=== PATIENT | female | born 1970 | race Caucasian/White ===

== ENCOUNTER → 2019-02-07 | Outpatient (CLI) | payer BC ==
[2019-02-09 15:06] LABS: HPV 16 Negative (Negative); HPV 18 Negative (Negative); HPV OTHER HR TYPES Negative (Negative)
== END | disposition home or self-care (01) ==
LOC: LAB 18:40 → LAB SHORT 18:40
PROVIDERS: Obstetrics & Gynecology
DX: Z01.419 Encounter for gynecological examination (general) (routine) without abnormal findings (principal)
CPT/HCPCS: 87624; G0123

== ENCOUNTER 2019-05-29 06:05 | Day surgery (SDC) | payer BC ==
[~2019-05-29] VITALS: Ht 170.2 cm; Wt 96.1 kg
[~2019-05-29 06:05] MED LIST: ATOM25 PO; ESCI20 PO; ESTR2 PO; ESTRADIOL; LORA1 PO; Testopel75 MG; ZOLP12.5 PO; Zoloft50 MG PO
== END 2019-05-29 09:09 | disposition home or self-care (01) ==
LOC: ORSCSDS 06:05
PROVIDERS: Orthopaedic Surgery
PROC: 01N50ZZ Release Median Nerve, Open Approach (ICD-10-PCS; principal; 2019-05-29 08:00)
DX: G56.01 Carpal tunnel syndrome, right upper limb (principal); Z79.899 Other long term (current) drug therapy; E66.9 Obesity, unspecified; Z68.33 Body mass index [BMI] 33.0-33.9, adult
CPT/HCPCS: J2250; J2704; J3010

== ENCOUNTER → 2019-06-11 | Outpatient (CLI) | payer BC | END | disposition home or self-care (01) | LOC: LAB SHORT 08:50 → LAB 08:50 | DX: G56.01 Carpal tunnel syndrome, right upper limb (principal) | CPT/HCPCS: 87070; 87075; 87077; 87186; 87205 ==

== ENCOUNTER 2022-02-26 13:49 | Inpatient (IN) | payer BC ==
[~2022-02-26] VITALS: Ht 170.2 cm; Wt 86.2 kg
[~2022-02-26 13:49] MED LIST changes: +ACYCLOVIR800 MG PO; +Ativan1 MG PO; +CELEBREX200 MG PO; +HYDROCODONE-AC1 EAC7 PO; +Neurontin400 MG PO; +Percocet 5-3251 EACH PO; +SERT50 PO
[2022-02-26 14:03] LABS: BASOPHILS ABSOLUTE AUTO 0.06 K/mm3 (0.00-0.23); BASOPHILS PERCENT AUTO 0 % (0-2); EOSINOPHILS PERCENT AUTO 1 % (0-6); Hematocrit 35.9 % (33.0-51.0); IMMATURE GRAN ABSOLUTE AUTO 0.05 K/mm3 (0.00-0.10); IMMATURE GRAN PERCENT AUTO 0 % (0-1); LYMPHOCYTES ABSOLUTE AUTO 1.31 K/mm3 (0.84-5.20); LYMPHOCYTES PERCENT AUTO 9 % (21-46); MONOCYTES ABSOLUTE AUTO 1.05 K/mm3 (0.16-1.47); MONOCYTES PERCENT AUTO 7 % (4-13); Mean Corpuscular HGB 31.4 pg (26.0-34.0); Mean Corpuscular HGB Conc 33.4 g/dL (31.5-36.5); Mean Corpuscular Volume 94 fL (80-100); Mean Platelet Volume 8.6 fL (9.1-12.4); NEUTROPHILS ABSOLUTE AUTO 12.35 K/mm3 (1.96-9.15); NEUTROPHILS PERCENT AUTO 83 % (41-73); Platelet Count 284 K/mm3 (150-400); RDW Coefficient Variation 11.9 % (11.7-14.2); RDW Standard Deviation 40.9 fL (35.1-46.3); Red Blood Cell Count 3.82 M/mm3 (3.80-5.20); White Blood Cell Count 14.92 K/mm3 (4.00-11.30)
[2022-02-26 14:30] LABS: Albumin, Blood 3.4 g/dL (3.4-5.0); Bilirubin, Total 0.5 mg/dL (0.1-1.0); Bun/Creatinine Ratio 13.1 (12.0-20.0); Calcium, Blood 9.1 mg/dL (8.5-10.1); Creatinine, Blood 0.61 mg/dL (0.40-1.00); Globulin, Blood 3.5 g/dL (2.2-4.0); Potassium, Blood 3.7 mmol/L (3.5-5.5); Total Protein, Blood 6.9 g/dL (6.4-8.2)
[2022-02-26 14:32] LABS: Source, Urine Clean Catch
[2022-02-26 14:44] LABS: Appearance, Urine Clear (Clear); Bilirubin, Urine Neg (Neg); Blood, Urine Neg (Neg); Color, Urine Yellow (P-Yellow); Glucose Qualitative, Urine Neg (Neg); Ketones, Urine 2+ (Neg); Leukocyte Esterase, Urine Neg (Neg); Nitrite, Urine Neg (Neg); Protein, Urine Neg (Neg); Specific Gravity, Urine 1.015 (1.003-1.022); Urobilinogen, Urine NORM (Normal)
--- NOTE | 2022-02-27 04:25 | NUR ---
PT IS A&0X4, MIN ASSIST TO BR AND IS ABLE TO MAKE NEEDS KNOWN. ADMITTED FROM THE ED FOR ACUTE APPENDICITIS, PT REPORTS 9-10 OUT OF 10 PAIN, MANAGED WITH DILAUDID Q2H. PT HAS BEEN NPO SINCE ARRIVIAL TO THE FLOOR LAST EVENING AT 2130 HOURS. PT REPORTS NAUSEA DURING THE NIGHT, PRN ZOFRAN GIVEN WITH GOOD RESULTS. PT SLEEPS INTERMITTENTLY BETWEEN CARES. SURGICAL CONSULT DONE IN ED PER MD NOTES. WILL CONTINUE TO MONITOR THIS PATIENT.
[2022-02-27 04:57] LABS: Hematocrit 30.5 % (33.0-51.0); Hemoglobin 10.2 g/dL (11.5-16.0); Mean Corpuscular HGB 31.8 pg (26.0-34.0); Mean Corpuscular HGB Conc 33.4 g/dL (31.5-36.5); Mean Corpuscular Volume 95 fL (80-100); Mean Platelet Volume 8.6 fL (9.1-12.4); Platelet Count 243 K/mm3 (150-400); RDW Coefficient Variation 12.2 % (11.7-14.2); RDW Standard Deviation 42.5 fL (35.1-46.3); Red Blood Cell Count 3.21 M/mm3 (3.80-5.20); White Blood Cell Count 13.63 K/mm3 (4.00-11.30)
[2022-02-27 05:24] LABS: Bun/Creatinine Ratio 12.1 (12.0-20.0); Calcium, Blood 7.9 mg/dL (8.5-10.1); Creatinine, Blood 0.66 mg/dL (0.40-1.00); Potassium, Blood 3.2 mmol/L (3.5-5.5)
[2022-02-27] MEDS ORDERED: HYDACE10B PO (15:27)
--- NOTE | 2022-02-27 15:44 | NUR ---
SHIFT SUMMARY PT A&OX4, VSS/RA, NOLA PO, VOIDING WELL, DENIES PAIN AT THIS TIME, AMBULATING SBA TO BRP/UP IN ROOM, AT BEDSIDE. S/P OPEN APPY, JIM WNL, MILDLY TENDER ABD. EDU/ENC SPLINTING AND USING I.S./TCDB. WILL REPORT TO ONCOMING NOC R.N.
--- NOTE | 2022-02-28 05:39 | NUR ---
SHIFT SUMMARY POD 0 LAP CASSI. LAP SITES C/D/I, DRAIN IN PLACE. PT HAS HAD INTERMITTENT PAIN OFF AND ON T/O THE SHIFT. PT ALSO COMPLAINED OF A GUERRA THIS SHIFT, MEDICATED PER EMAR ORDERS. PT HAS BEEN INDEPEDENT IN THE ROOM. PT DOES SEEM ANXIOUS AT TIMES, AND HAS SPENT A GOOD PORTION OF THE SHIFT AWAKE DESPITE RECEIVING MEDICATION FOR SLEEP PER HER REQUEST. NO ACUTE CHANGES OVERNIGHT. BED IN LOWEST POSITION, CALL LIGHT WITHIN REACH.
[2022-02-28 08:21] LABS: Hematocrit 27.4 % (33.0-51.0); Hemoglobin 8.9 g/dL (11.5-16.0)
[2022-02-28 08:50] LABS: Bun/Creatinine Ratio 8.5 (12.0-20.0); Creatinine, Blood 0.59 mg/dL (0.40-1.00); Potassium, Blood 3.6 mmol/L (3.5-5.5)
[2022-02-28] MEDS ORDERED: AMOCLA875 PO (13:36)
--- NOTE | 2022-02-28 14:11 | NUR ---
DISCHARGE DISCHARGE INSTRUCTIONS GIVEN + QUESTIONS ANSWERED. SCRIPT GIVEN. IV DC'D WNL. PT WALKING OUT IN HALLS TO DC WITH BELONGINGS, AT SIDE.
--- NOTE | 2022-02-28 14:30 | NUR ---
DISCHARGE SUMMARY PT A&OX4, VSS/RA, PAIN MANAGED WITH NORCO, NOLA PO, VOIDING WELL, AMBULATING INDEPENDENTLY TO BRP/UP IN ROOM/HALLWAY. POD1 APPY, JIM WNL + 2 BANDAIDS OVER BAY CDI, EDU TO LEAVE JIM IN PLACE UNTIL TUESDAY THEN REMOVE AND LEAVE ORIA[place], FOLLOW UP WITH SURGEON 2 WKS. LEFT FLOOR WALKING OUT WITH , DECLINED WC, WITH ALL PERSONAL POSSESSIONS INCLUDING DC PACKET AND 1 SCRIPT FOR AUGMENTIN. IV DC'D.
== END 2022-02-28 14:11 | disposition home or self-care (01) | DRG 854 ==
LOC: ER 13:49 → SURS 19:50
PROVIDERS: Internal Medicine; Student in an Organized Health Care Education/Training Program; ADMIT Internal Medicine
PROC: 3E03329 Introduction of Other Anti-infective into Peripheral Vein, Percutaneous Approach (ICD-10-PCS; principal; 2022-02-26)
PROC: 0DBH0ZZ Excision of Cecum, Open Approach (ICD-10-PCS; 2022-02-26)
PROC: 0DJD4ZZ Inspection of Lower Intestinal Tract, Percutaneous Endoscopic Approach (ICD-10-PCS; 2022-02-26)
DX: A41.9 Sepsis, unspecified organism (principal); K35.80 Unspecified acute appendicitis; D62 Acute posthemorrhagic anemia; G89.29 Other chronic pain; D72.829 Elevated white blood cell count, unspecified; F41.8 Other specified anxiety disorders; E87.6 Hypokalemia; Z90.710 Acquired absence of both cervix and uterus; Z90.89 Acquired absence of other organs; Z90.49 Acquired absence of other specified parts of digestive tract; Z88.5 Allergy status to narcotic agent; Z91.048 Other nonmedicinal substance allergy status; Z88.8 Allergy status to other drugs, medicaments and biological substances; Z79.891 Long term (current) use of opiate analgesic; Z79.899 Other long term (current) drug therapy; Z53.31 Laparoscopic surgical procedure converted to open procedure
CPT/HCPCS: 36415; 74177; 80048; 80053; 81003; 83690; 85014; 85018; 85025; 85027; 87040; 88307; 96361; 96365-59; 96375; 96376; 99285-25; A9270; J0295; J1100; J1170; J1885; J2060; J2250; J2405; J2543; J2550; J2704; J3010; J3480; J7030; J7040; J7120; Q9967

== ENCOUNTER → 2022-06-30 | Outpatient (CLI) | payer BC ==
[~2022-06-30] MED LIST changes: +AMOCLA875 PO; +HYDACE10B PO
== END | disposition home or self-care (01) ==
LOC: LAB SHORT 11:07 → LAB 11:07
DX: D48.5 Neoplasm of uncertain behavior of skin (principal)
CPT/HCPCS: 88305

== ENCOUNTER 2024-08-15 22:29 | Emergency (ER) | payer BC ==
[~2024-08-15] VITALS: Ht 170.2 cm; Wt 95.2 kg
[2024-08-15 22:57] LABS: BASOPHILS ABSOLUTE AUTO 0.07 K/mm3 (0.00-0.23); BASOPHILS PERCENT AUTO 1 % (0-2); EOSINOPHILS ABSOLUTE AUTO 0.02 K/mm3 (0.00-0.68); EOSINOPHILS PERCENT AUTO 0 % (0-6); Hematocrit 40.3 % (33.0-51.0); Hemoglobin 13.4 g/dL (11.5-16.0); IMMATURE GRAN ABSOLUTE AUTO 0.04 K/mm3 (0.00-0.10); IMMATURE GRAN PERCENT AUTO 0 % (0-1); LYMPHOCYTES ABSOLUTE AUTO 1.13 K/mm3 (0.84-5.20); LYMPHOCYTES PERCENT AUTO 11 % (21-46); MONOCYTES PERCENT AUTO 5 % (4-13); Mean Corpuscular HGB 32.5 pg (26.0-34.0); Mean Corpuscular HGB Conc 33.3 g/dL (31.5-36.5); Mean Corpuscular Volume 98 fL (80-100); Mean Platelet Volume 8.8 fL (9.1-12.4); NEUTROPHILS ABSOLUTE AUTO 8.38 K/mm3 (1.96-9.15); NEUTROPHILS PERCENT AUTO 83 % (41-73); Platelet Count 314 K/mm3 (150-400); RDW Coefficient Variation 11.9 % (11.7-14.2); RDW Standard Deviation 43.3 fL (35.1-46.3); Red Blood Cell Count 4.12 M/mm3 (3.80-5.20); White Blood Cell Count 10.14 K/mm3 (4.00-11.30)
[2024-08-15 23:25] LABS: Albumin, Blood 3.5 g/dL (3.4-5.0); Bilirubin, Total 0.4 mg/dL (0.1-1.0); Bun/Creatinine Ratio 19.9 (12.0-20.0); Calcium, Blood 9.1 mg/dL (8.5-10.1); Creatinine, Blood 0.6 mg/dL (0.40-1.00); Globulin, Blood 3.6 g/dL (2.2-4.0); Potassium, Blood 3.7 mmol/L (3.5-5.5); Total Protein, Blood 7.1 g/dL (6.4-8.2)
[2024-08-16] MEDS ORDERED: DiphenhydrAMINE HCl 50 MG/ML 1ML Vial IV ONE (02:10)
[2024-08-16] MEDS ORDERED: Prochlorperazine Edisylate 10 mg Vial IV ONE (02:10)
[2024-08-16] MEDS ORDERED: NS 1,000 ML IV SCH (02:15)
[2024-08-16] MEDS ORDERED: ONDA4ODT MM (03:29)
[2024-08-16 04:00] VITALS: BP 133/71
== END 2024-08-16 04:33 | disposition home or self-care (01) ==
LOC: ER 22:29
PROVIDERS: Student in an Organized Health Care Education/Training Program
DX: R11.2 Nausea with vomiting, unspecified (principal); E86.0 Dehydration; T38.3X5A Adverse effect of insulin and oral hypoglycemic [antidiabetic] drugs, initial encounter; Z88.5 Allergy status to narcotic agent; Z91.048 Other nonmedicinal substance allergy status; Z79.1 Long term (current) use of non-steroidal anti-inflammatories (NSAID); Z79.899 Other long term (current) drug therapy
CPT/HCPCS: 74176; 80053; 83690; 85025; 96361; 96374; 96375; 99284-25; J0780; J1200; J7030